=== PATIENT | female | born 1985 | race African-American/Black ===

== ENCOUNTER 2018-01-11 18:30 | Emergency (ER) | payer MEDICAID ==
[~2018-01-11] VITALS: Ht 167.6 cm; Wt 78.9 kg
[2018-01-11 18:40] VITALS: BP 136/84
[2018-01-11 19:37] LABS: APPEARANCE,URINE SLIGHTLY CLOUDY; BILIRUBIN, URINE NEGATIVE (NEGATIVE); GLUCOSE, URINE (UA) NEGATIVE (NEGATIVE); KETONES,URINE NEGATIVE (NEGATIVE); LEUKOCYTE ESTERASE ,URINE NEGATIVE (NEGATIVE); NITRITE,URINE NEGATIVE (NEGATIVE); PH,URINE 5 (4.5-8.0); PROTEIN,URINE 1+ (NEGATIVE); UROBILINOGEN,URINE 1 MG/DL (0.0-1.0)
[2018-01-11 19:39] LABS: COLOR,URINE YELLOW
[2018-01-11 20:25] LABS: BASOPHILS % (AUTO) 1.5 % (0.0-2.0); EOSINOPHILS % (AUTO) 2.8 % (0.0-3.0); HEMATOCRIT 38.2 % (37.0-47.0); HEMOGLOBIN 13.2 G/DL (12.0-16.0); LYMPHOCYTES % (AUTO) 38.2 % (20.0-45.0); MEAN CORPUSCULAR VOLUME 89 FL (80-99); MONOCYTES % (AUTO) 6.4 % (1.0-10.0); NEUTROPHILS % (AUTO) 51.1 % (45.0-75.0); PLATELET COUNT 252 K/UL (150-450); RED BLOOD COUNT 4.31 M/UL (4.20-5.40); WHITE BLOOD COUNT 7.1 K/UL (4.8-10.8)
[2018-01-11 20:30] LABS: ANION GAP 9 mmol/L (5-15); BLOOD UREA NITROGEN 16 mg/dL (7-18); CALCIUM 9.3 MG/DL (8.5-10.1); CARBON DIOXIDE 27 MMOL/L (21-32); CHLORIDE 104 MMOL/L (98-107); POTASSIUM 3.6 MMOL/L (3.5-5.1); SODIUM 140 MMOL/L (136-145)
--- NOTE | 2018-01-11 20:32 | Emergency Room Report ---
History of Present Illness General Chief Complaint: Female Urogenital Problems Source: Patient Present Illness HPI 32-year-old female patient presents ER complaining of swelling for the past day. Reports that she has used 1 pad during this time. Denies passage of clots. denies syncope or dizziness. Reports last menstrual period several months ago, states that she is trying to get , states not taking any control medications. Reports crampy abdominal pain during this time. Denies dysuria, hematuria, vaginal discharge. Denies other acute symptoms. Denies flank pain. Denies vomiting, chest pain, shortness of breath,fever. reports history of 2 pregnancies, last 10 years ago. Allergies: Coded Allergies: No Known Allergies (Unverified , 01/11/18) Patient History Past Medical History: see triage record Last Menstrual Period: 08/2017 : 2 Para: 2 Reviewed Nursing Documentation: PMH: Agreed; PSxH: Agreed Nursing Documentation-PMH Hx Asthma: Yes Review of Systems All Other Systems: negative except mentioned in HPI Physical Exam Vital Signs Date Time Temp Pulse Resp B/P (MAP) Pulse Ox O2 Delivery O2 Flow Rate FiO2 01/11/18 18:37 98.0 94 18 136/84 100 Room Air 98.1 Sp02 EP Interpretation: reviewed, normal General Appearance: well appearing, no apparent distress, alert, GCS 15, non- toxic Head: normocephalic, atraumatic Eyes: bilateral eye normal inspection, bilateral eye PERRL ENT: hearing grossly normal, normal pharynx, no angioedema, normal voice, uvula midline, moist mucus membranes Neck: full range of motion Respiratory: lungs clear, normal breath sounds, no rhonchi, no respiratory distress, no accessory muscle use, no wheezing, speaking full sentences Cardiovascular #1: regular rate, rhythm, no edema Gastrointestinal: non tender, soft, no mass, non-distended, no guarding, no rebound Genitourinary: no CVA tenderness, deferred Musculoskeletal: back normal, digits/nails normal, gait/station normal, normal range of motion, non-tender Neurologic: alert, oriented x3, responsive, motor strength/tone normal, sensory intact Psychiatric: mood/affect normal Skin: no rash Medical Decision Making PA Attestation Dr. Graham is my supervising Physician whom patient management has been discussed with. Diagnostic Impression: Primary Impression: Abnormal uterine bleeding Additional Impression: Nabothian cyst ER Course Pt presents to ED c/o vaginal spotting and cramping 1 day. DDX considered but are not limited to threatened , ectopic, UTI, fibroids, dysfunctional uterine bleeding. VITAL SIGNS are WNL, patient is afebrile Pelvic exam deferred. Ordered CBC, CMP, Type and Screen, UA, UCG, bHCG, IV NS and pelvic US. Tylenol for pain control. ER COURSE: Patient resting comfortably, in no acute distress, nontoxic appearing. Patient reports pain symptoms resolved since onset. physical exam benign, no tenderness to palpation of the abdomen, no flank pain. CBC and CMP unremarkable, no anemia, no elevation in WBC UA results unremarkable, mid hematuria noted, likely secondary to spotting, low suspicion for infection does not require antibiotics at this time. Urine negative BetaHCG negative Rh antibody negative Blood type B positive informed patient of results. Pelvic US shows no acute disease, no IUP, no free fluid, multiple nabothian cysts noted Discuss results with the patient. Provided patient with copy of results. Instructed patient to followup with PCP and discuss results of report with patient, discuss need for further treatment and referral. F/u with system configuration specialist. Provided with contact information for [facility] unable to get referral from primary care provider. Follow with primary care provider at scheduled appointment to discuss referral at that time. DISCHARGE: At this time pt. is stable for d/c to home. At this time patient is resting comfortably, in no acute distress, nontoxic appearing, smiling and talking without difficulty. Will provide printed patient care instructions, and any necessary prescriptions. Patient instructed to follow with OBGYN for further treatment and referral as needed. Care plan and follow up instructions have been discussed with the patient prior to discharge. Patient reports understanding and agreement to treatment plan. Patient questions asked and answered. ER precautions given, patient instructed to return to ER immediately for any new or worsening of symptoms. - Please note that this Emergency Department Report was dictated using [email or web address] director technology software, occasionally this can lead to erroneous entry secondary to interpretation by the dictation equipment. Labs Test 01/11/18 17:50 01/11/18 20:10 Urine Color Yellow Urine Appearance Slightly cloudy Urine pH 5 (4.5-8.0) Urine Specific [place] 1.020 (1.005-1.035) Urine Protein 1+ (NEGATIVE) Urine Glucose (UA) Negative (NEGATIVE) Urine Ketones Negative (NEGATIVE) Urine Occult Blood 5+ (NEGATIVE) Urine Nitrite Negative (NEGATIVE) Urine Bilirubin Negative (NEGATIVE) Urine Urobilinogen 1 MG/DL (0.0-1.0) Urine Leukocyte Esterase Negative (NEGATIVE) Urine RBC 5-10 /HPF (0 - 2) Urine WBC 0-2 /HPF (0 - 2) Urine Squamous Epithelial Cells Moderate /LPF (NONE/OCC) Urine Bacteria Few /HPF (NONE) Urine HCG, Qualitative Negative (NEGATIVE) White Blood Count 7.1 K/UL (4.8-10.8) Red Blood Count 4.31 M/UL (4.20-5.40) Hemoglobin 13.2 G/DL (12.0-16.0) Hematocrit 38.2 % (37.0-47.0) Mean Corpuscular Volume 89 FL (80-99) Mean Corpuscular Hemoglobin 30.5 PG (27.0-31.0) Mean Corpuscular Hemoglobin Concent 34.4 G/DL (32.0-36.0) Red Cell Distribution Width 13.0 % (11.6-14.8) Platelet Count 252 K/UL (150-450) Mean Platelet Volume 7.0 FL (6.5-10.1) Neutrophils (%) (Auto) 51.1 % (45.0-75.0) Lymphocytes (%) (Auto) 38.2 % (20.0-45.0) Monocytes (%) (Auto) 6.4 % (1.0-10.0) Eosinophils (%) (Auto) 2.8 % (0.0-3.0) Basophils (%) (Auto) 1.5 % (0.0-2.0) Sodium Level 140 MMOL/L (136-145) Potassium Level 3.6 MMOL/L (3.5-5.1) Chloride Level 104 MMOL/L (98-107) Carbon Dioxide Level 27 MMOL/L (21-32) Anion Gap 9 mmol/L (5-15) Blood Urea Nitrogen 16 mg/dL (7-18) Creatinine 1.0 MG/DL (0.55-1.30) Estimat Glomerular Filtration Rate > 60 mL/min (>60) Glucose Level 102 MG/DL (74-106) Calcium Level 9.3 MG/DL (8.5-10.1) Total Bilirubin 0.2 MG/DL (0.2-1.0) Aspartate Amino Transf (AST/SGOT) 13 U/L (15-37) Alanine Aminotransferase (ALT/SGPT) 38 U/L (12-78) Alkaline Phosphatase 111 U/L (46-116) Total Protein 8.4 G/DL (6.4-8.2) Albumin 3.9 G/DL (3.4-5.0) Globulin 4.5 g/dL Albumin/Globulin Ratio 0.9 (1.0-2.7) Lipase 222 U/L (73-393) Human Chorionic Gonadotropin, Quant < 1 mIU/mL (1-6) CT/MRI/US Diagnostic Results CT/MRI/US Diagnostic Results : Imaging Test Ordered: Pelvic US Impression Uterus: 10.4 x 6.1 x 5.9 cm. No myometrial mass. Multiple nabothian cysts incidentally noted at the uterine cervix. Endometrium: Homogeneous, 9 mm maximum thickness. No abnormal vascularity. Right ovary: 3.7 x 3.0 x 2.2 cm. Normal Doppler blood flow. Left ovary: 3.6 x 2.5 x 2.3 cm. Normal Doppler blood flow. Free fluid: None. Impression: Unremarkable pelvic ultrasound. No acute abnormalities. Last Vital Signs Date Time Temp Pulse Resp B/P (MAP) Pulse Ox O2 Delivery O2 Flow Rate FiO2 01/11/18 18:40 98.0 94 18 136/84 100 Room Air 98.0 Disposition: HOME, SELF-CARE Condition: Stable Scripts No Active Prescriptions or Reported Meds Referrals: NON PHYSICIAN (PCP) Patient Instructions: Dysfunctional Uterine Bleeding Additional Instructions: Followup with primary care provider in 3 -5 days. Followup with OBGYN, may contact referral provided to schedule appointment. Take medications as directed. Patient questions asked and answered. ER precautions given, patient instructed to return to ER immediately for any new or worsening of symptoms. Darius Dotson Jan 11, 2018 20:32
[2018-01-11 20:35] LABS: ALANINE AMINOTRANSFERASE 38 U/L (12-78); ALBUMIN 3.9 G/DL (3.4-5.0); ALBUMIN/GLOBULIN RATIO 0.9 (1.0-2.7); ALKALINE PHOSPHATASE 111 U/L (46-116); ASPARTATE AMINO TRANSFERASE 13 U/L (15-37); BILIRUBIN,TOTAL 0.2 MG/DL (0.2-1.0)
[2018-01-11 21:15] VITALS: BP 122/84
--- NOTE | 2018-01-12 08:28 | Diagnostic Imaging Report ---
Indication: Pelvic cramping and vaginal spotting, negative urine test Technique: Transabdominal and transvaginal images Comparison: none Findings: Uterus measures 10.5 cm length by 5.3 cm AP. Endometrium measures 9 mm thick. There are multiple small cervical nabothian cysts. No myometrial abnormality. Right ovary measures 3 cm in length. Left ovary measures 3.5 cm length. No adnexal mass. No free cul-de-sac fluid. Impression: Essentially unremarkable exam. Incidental finding multiple nabothian cysts This agrees with the preliminary interpretation [facility].
== END 2018-01-11 21:20 | disposition home or self-care (01) ==
LOC: EMR 19:05
DX: N88.8 Other specified noninflammatory disorders of cervix uteri (principal); N93.9 Abnormal uterine and vaginal bleeding, unspecified
CPT/HCPCS: 36415; 76830; 76856; 80053; 81003; 81025; 83690; 84702; 85025; 86850; 86900; 86901; 96360; 99284